=== PATIENT | male | born 1965 | race Caucasian/White ===

== ENCOUNTER 2018-02-28 09:03 | Emergency (ER) | payer OTHER ==
[~2018-02-28] VITALS: Ht 180.3 cm; Wt 83.9 kg
[~2018-02-28 09:03] MED LIST: NORCO 5-325 TA1 EACH PO; VICODIN; ZANTAC 150MG T150 MG
[2018-02-28] MEDS ORDERED: FLEXERIL PO (10:35)
[2018-02-28] MEDS ORDERED: IBUPROFEN 800800 M1 PO (10:35)
[2018-02-28 10:47] VITALS: BP 130/81
== END 2018-02-28 10:48 | disposition home or self-care (01) ==
LOC: M.ERS 09:03
DX: Z04.1 Encounter for examination and observation following transport accident (principal)

== ENCOUNTER → 2018-04-24 | Outpatient (CLI) | payer OTHER ==
[~2018-04-24] MED LIST changes: +FLEXERIL PO; +IBUPROFEN 800800 M1 PO
== END ==
LOC: M.RAD 09:50
DX: M79.645 Pain in left finger(s) (principal); V89.2XXA Person injured in unspecified motor-vehicle accident, traffic, initial encounter

== ENCOUNTER → 2018-06-14 | Outpatient (CLI) | payer OTHER | LOC: M.MRI 07:06 | DX: M47.812 Spondylosis without myelopathy or radiculopathy, cervical region (principal); M50.223 Other cervical disc displacement at C6-C7 level; M54.5 Low back pain; M54.6 Pain in thoracic spine ==

== ENCOUNTER → 2018-06-21 | Outpatient (CLI) | payer OTHER | LOC: M.MRI 06-11 11:09 | DX: M51.27 Other intervertebral disc displacement, lumbosacral region (principal); M51.26 Other intervertebral disc displacement, lumbar region; M51.24 Other intervertebral disc displacement, thoracic region; R25.2 Cramp and spasm; M54.2 Cervicalgia; V89.2XXA Person injured in unspecified motor-vehicle accident, traffic, initial encounter ==

== ENCOUNTER → 2018-12-19 | Outpatient (CLI) | payer OTHER | LOC: M.RAD 11:23 | DX: R06.02 Shortness of breath (principal); Z87.891 Personal history of nicotine dependence ==

== ENCOUNTER → 2020-02-20 | Day surgery (SDC) | payer OTHER ==
[~2020-02-20] MED LIST changes: +FLOMAX0.4 MG PO; +VICODIN HP 10-1 EAC1 PO
--- NOTE | 2020-02-27 12:36 | OP ---
[address] [address] OPERATIVE REPORT Name: ZEKE RUTHERFORD III Room: [facility].#: [id number] Admission: 02/20/20 Attend Phys: Ramy Banda DO Discharge: Date of : 63 Report #: [id number] THIS REPORT FOR: //name// cc: Anuj Vasquez Russell J. DO ~ THIS REPORT FOR: //name// CC: Ramy Nickerson DO DICTATED BY: Santos Altamirano DO DATE OF SERVICE: 02/20/2020 PREOPERATIVE DIAGNOSIS: Cholelithiasis. POSTOPERATIVE DIAGNOSIS: Chronic cholecystitis with cholelithiasis. SURGEON: Ramy Banda DO PLASTIC TILE SETTER: Brant Altamirano, PGY5 OPERATION PERFORMED: Laparoscopic cholecystectomy with immunofluorescence imaging. ANESTHESIA: General and regional with TAP blocks. ESTIMATED BLOOD LOSS: 20 mL. SPECIMENS REMOVED: Gallbladder and contents. COMPLICATIONS: None. DISPOSITION: PACU and likely to be discharged home later today after further recovery. DESCRIPTION OF PROCEDURE: After the appropriate consents were obtained, the patient was taken to the operating room, laid in supine position. He had SCDs placed on his bilateral lower extremities and a safety strap placed across his lap. He had a foot board placed at the end of the bed to help with positioning. Both arms were placed out his sides. All lines placed by Anesthesia. The nurse progressive die maker sedated the patient and induced anesthesia without difficulty and intubated the patient. The anesthesiologist was at bedside assisting and then promptly placed TAP blocks bilaterally after [place] [id number] OPERATIVE REPORT Name: ZEKE RUTHERFORD III Room: [facility]#: [id number] Admission: 02/20/20 Attend Phys: Ramy Banda, Discharge: Date of : 63 Report #: [id number] The patient's abdomen was exposed, prepped and draped in a standard sterile fashion. A timeout was performed, correctly identify the patient and procedure. He was given perioperative antibiotics at this time. We started by making an infraumbilical midline incision using a #11 blade scalpel. This was carried down through subcutaneous tissue until we encountered the anterior abdominal wall fascia. Once the fascia was encountered, it was scored and grasped between 2 Catrachita clamps. We entered the patient's peritoneal cavity bluntly using hemostat. We placed two separate 0 Vicryl stitches on the superior and inferior aspect of our fascial incision. We then introduced the David trocar into the patient's abdomen and secured it as we insufflated his abdomen to 15 mmHg. Once the patient's abdomen was completely desufflated, we did initial inspection of the anterior abdominal organs and noticed that he had a distended gallbladder in his right upper quadrant, but there were no obvious other abnormalities. We did ask the nurse progressive die maker to place an OG tube as he did have some distention of his stomach. He was placed in the head up, left side down position. We placed a subxiphoid port under direct visualization, which was a 5 mm port. Using a blunt grasper, we were able to elevate the liver edge and grab the gallbladder. It was retracted superiorly and it appeared he had a stone down the neck of the gallbladder. It was at this point, we placed our 2 right-sided lateral abdominal wall ports, both of these ports were 5 mm and placed under direct visualization. We were able to use a locking grasper to grasp the fundus of the gallbladder and retracted cephalad anteriorly. We did use immunofluorescent screen procedure and we were able to visualize the imaging of the gallbladder as well as cystic duct and common bile duct well below this. We started by grasping Pavel's pouch and retracted it medially and on the lateral side of the gallbladder, incised the peritoneum and carried this superiorly. We then dissected along the lateral side of the cystic duct. There were easily able to identify and then once this was completely dissected out, we turned our attention more medially. We were able to skeletonize the cystic duct completely and confirmed that it was going directly into the gallbladder with immunofluorescent screen as well as visual imaging. We then could easily see our artery coursing medially and this was dissected out and skeletonized as well. It was at this point, we were able to visualize our critical view of safety. There were 2 and only 2 structures going directly into the gallbladder. This was confirmed and reassured by using immunofluorescence imaging that was provided for the case. Once our structures were skeletonized, we then placed clips on each structure; two clips proximally on the duct and one clip distally. We then placed one clip proximally and one clip distally on the cystic artery. Both these structures were incised using laparoscopic scissors. The gallbladder was removed from the liver bed using blunt dissection as well as electrocautery. Any amount of bleeding that was apparent was adequately controlled using electrocautery. The patient had a large stone within the neck of the gallbladder and had a rather long gallbladder as well. He had some signs of chronic cholecystitis on the posterior aspect of the gallbladder near the liver bed. Once the gallbladder was completely removed, it was placed within the EndoCatch pouch. We reinspected our liver bed as well as our clips. The clips Dunn's [address] [address] OPERATIVE REPORT Name: SANGEETAZEKE EFRAIN RINCON Room: [facility].#: [id number] Admission: 02/20/20 Attend Phys: Ramy Banda DO Discharge: Date of : 63 Report #: [id number] appeared to be in place and intact. No oozing or bleeding from the duct or the artery and there was no bleeding from the gallbladder fossa at this point. The patient's liver was allowed to return to normal anatomical position. We placed some omentum within the gallbladder fossa and he was allowed to return to normal supine position. All of our trocars were removed under direct visualization without any bleeding or oozing from either trocar sites. The patient's abdomen was allowed to completely desufflate and we removed the David trocar from the infraumbilical region. It was at this point, we attempted to remove the gallbladder from the fascial incision and it was difficult to do so. So, we had to extend our fascial incision slightly in order to remove it due to the large stone that was present within the patient's gallbladder. We used the previously placed 0 Vicryl stitches to retract and elevate the patient's anterior abdominal wall fascia. We then placed two separate 0 Vicryl stitches in a [id number] fashion to reapproximate this fascia completely. This allowed us to achieve adequate reapproximation. The subcutaneous tissue was closed using a 3-0 Vicryl stitch in an inverted interrupted fashion. The skin was closed using a running 4-0 Monocryl suture in a subcuticular fashion. Each of the remaining port sites were closed using the same 4-0 Monocryl stitch in an inverted interrupted fashion. We were able to clean and dry. The patient's abdomen completely and placed Dermabond over each incision site. The patient was allowed to awaken and was subsequently extubated in the OR. All counts were correct x [address] Banda was present and scrubbed for the entire procedure. <ELECTRONICALLY SIGNED> By: Ramy Banda DO 02/27/20 [id number] Banda DO /nt
== END | disposition home or self-care (01) ==
LOC: M.SUR 07:29
DX: K80.10 Calculus of gallbladder with chronic cholecystitis without obstruction (principal); G43.909 Migraine, unspecified, not intractable, without status migrainosus; F17.210 Nicotine dependence, cigarettes, uncomplicated; Z98.890 Other specified postprocedural states; Z79.899 Other long term (current) drug therapy; Z11.59 Encounter for screening for other viral diseases